=== PATIENT | female | born 1965 | race Two or more races ===

== ENCOUNTER 2016-04-17 05:28 | Inpatient (IN) | payer OTHER ==
[2016-04-17] MEDS ORDERED: LIDOCAINE 1% 5 ML SDV ONE (06:26)
[2016-04-17] MEDS ORDERED: LR 1,000 ML IV ONE (06:43)
[2016-04-17] MEDS ORDERED: LIDOCAINE 1% 5 ML SDV ID PRN (06:43)
[2016-04-17] MEDS ORDERED: POLYMYXIN B SULFATE 500,000 UNIT/10 ML SYR IRR ONE (06:56)
[2016-04-17] MEDS ORDERED: BACITRACIN 50,000 UNITS/10 ML SYR IRR ONE (06:57)
[2016-04-17] MEDS ORDERED: DIPHENOXYLATE/ATROPINE LOMOTIL 1 TAB PO PRN (07:07)
[2016-04-17] MEDS ORDERED: CYCLOBENZAPRINE 10 MG TAB PO PRN (07:07)
[2016-04-17] MEDS ORDERED: ONDANSETRON 4 MG/2 ML VIAL IVP PRN (07:07)
[2016-04-17] MEDS ORDERED: PROMETHAZINE HCL 25 MG SUPPR PR PRN (07:07)
[2016-04-17] MEDS ORDERED: diphenhydrAMINE 25 MG CAP PO PRN (07:07)
[2016-04-17] MEDS ORDERED: PROMETHAZINE HCL 25 MG/ML INJ IVP PRN (07:07)
[2016-04-17] MEDS ORDERED: PHARMACY PAIN CONSULT 1 EA MISC PRN (07:07)
[2016-04-17] MEDS ORDERED: POLYETHYLENE GLYCOL 3350 17 GM PKT PO PRN (07:07)
[2016-04-17] MEDS ORDERED: LACTULOSE 20 GM/30 ML UDCUP PO PRN (07:07)
[2016-04-17] MEDS ORDERED: MAGNESIUM HYDROXIDE 30 ML UDCUP PO PRN (07:07)
[2016-04-17] MEDS ORDERED: TEMAZEPAM 15 MG CAP PO PRN (07:07)
[2016-04-17] MEDS ORDERED: METOCLOPRAMIDE 10 MG/2 ML VIAL IVP PRN (07:07)
[2016-04-17] MEDS ORDERED: BISACODYL 10 MG SUPP PR PRN (07:07)
[2016-04-17] MEDS ORDERED: traMADol 50 MG TAB PO PRN (07:07)
[2016-04-17] MEDS ORDERED: ONDANSETRON DISINTEGRATING 4 MG TAB PO PRN (07:07)
[2016-04-17] MEDS ORDERED: THROMBIN (RECOMBINANT) 5,000 UNIT VIAL TP ONE (07:13)
[2016-04-17] MEDS ORDERED: CALCIUM CHLORIDE 1 GM/10 ML INJ ONE (07:13)
[2016-04-17] MEDS ORDERED: ceFAZolin 1 GM/5 ML SYR ONE (07:14)
[2016-04-17] MEDS ORDERED: PROPOFOL/EMULSION 500 MG/50 ML BOTTLE IV ONE ×2 (07:15→08:22)
[2016-04-17] MEDS ORDERED: MIDAZOLAM 2 MG/2 ML VIAL ONE (07:20)
[2016-04-17] MEDS ORDERED: FAMOTIDINE 20 MG TAB ONE (07:22)
[2016-04-17] MEDS ORDERED: ACETAMINOPHEN 325 MG TAB ONE (07:22)
[2016-04-17] MEDS ORDERED: FAMOTIDINE 20 MG TAB PO ONE (07:30)
[2016-04-17] MEDS ORDERED: ROPI/epiNEPH/KETOROLAC/morphINE JOINT COCKTAIL IU ONE (07:30)
[2016-04-17] MEDS ORDERED: ACETAMINOPHEN 325 MG TAB PO ONE (07:30)
[2016-04-17] MEDS ORDERED: VANCOMYCIN 1.25 GM in D5W 250 ML IV ONE (07:30)
[2016-04-17] MEDS ORDERED: LR 1,000 ML IV SCH (07:30)
[2016-04-17] MEDS ORDERED: clonIDINE 1 MG/10 ML VIAL EP ONE (08:30)
[2016-04-17] MEDS ORDERED: ROPIVACAINE HCL 150 MG/30 ML INJ ONE (08:30)
[2016-04-17] MEDS ORDERED: fentaNYL 100 MCG/2 ML INJ ONE (09:51)
--- NOTE | 2016-04-17 10:05 | DX ---
Left Knee, Two Views 9:44 a.m. Indication: Recent total knee arthroplasty. Technique: Crosstable lateral and AP views. Comparison: September 17, 2013. Findings: A three-piece total knee arthroplasty is anatomically aligned. No perihardware fracture. Sk in ricci and expected intraarticular and subcutaneous gas. Impression: Good positioning of total knee arthroplasty.
[2016-04-17] MEDS: predniSONE 5 MG TAB PO SCH (10:53)
[2016-04-17] MEDS: oxyCODONE IR 5 MG TAB PO PRN ×4 (10:53→22:27)
[2016-04-17] MEDS: DULoxetine 30 MG CAP PO SCH (10:53)
[2016-04-17] MEDS: LEFLUNOMIDE 20 MG TAB PO SCH (10:54)
[2016-04-17] MEDS: CYANO/VITAMIN B12 1000 MCG TAB PO SCH (10:54)
[2016-04-17] MEDS: FERROUS SULFATE 325 MG TAB PO SCH ×2 (10:54→20:19)
[2016-04-17] MEDS: FOLIC ACID 1 MG TAB PO SCH (10:55)
[2016-04-17] MEDS: SENNOSIDES/DOCUSATE SODIUM TAB PO SCH ×2 (10:55→20:20)
[2016-04-17] MEDS: ACETAMINOPHEN 325 MG TAB PO SCH ×2 (12:17→17:35)
[2016-04-17] MEDS ORDERED: VANCOMYCIN 1.5 GM in D5W 250 ML IV ONE (19:30)
[2016-04-17] MEDS: FAMOTIDINE 20 MG TAB PO SCH (20:20)
[2016-04-17] MEDS: ASPIRIN 325 MG TAB PO SCH (20:20)
[2016-04-17] MEDS: DIAZEPAM 5 MG TAB PO PRN (22:28)
[2016-04-18] MEDS: ACETAMINOPHEN 325 MG TAB PO SCH ×3 (01:37→12:33)
[2016-04-18] MEDS: oxyCODONE IR 5 MG TAB PO PRN ×3 (03:59→12:32)
[2016-04-18 05:34] LABS: HEMATOCRIT 36.3 % (38.0-47.0); HEMOGLOBIN 11.9 g/dL (12.6-16.3)
[2016-04-18] MEDS: DIAZEPAM 5 MG TAB PO PRN (05:50)
--- NOTE | 2016-04-18 07:48 | PDIAF ---
- Diagnosis Diagnosis: left knee djd Code Status: Full Code - Medication Management Discharge Medications: Medications to Continue on Transfer Cyanocobalamin [Vitamin B12 (*)] 2,500 mcg PO DAILY 03/09/16 [Last Taken ] DULoxetine [Cymbalta 30 MG (*)] 30 mg PO DAILY 03/09/16 [Last Taken 04/16/16 08: 00] Diclofenac Sodium [Voltaren 75 MG (*)] 75 mg PO DAILY 03/09/16 [Last Taken 04/10] Ferrous Sulfate [Ferrous Sulf 325 MG (*)] 325 mg PO BID 03/09/16 [Last Taken ] Folic Acid [Folic Acid 1 MG (*)] 1 mg PO DAILY 03/09/16 [Last Taken 04/10/15] Hydrocodone/Acetaminophen [[place] 5/325 (*)] 1 tab PO DAILY PRN 03/09/16 [Last Taken 04/16/16 17:30] Leflunomide [Arava 20 mg (*)] 20 mg PO DAILY 03/09/16 [Last Taken 04/10/15] Methotrexate Sodium [Rheumatrex] 10 mg PO WE 03/09/16 [Last Taken 04/10/15] predniSONE 5 mg PO DAILY 03/09/16 [Last Taken 04/10/15] riTUXimab [Rituxan] 10 mg IV Q182D 03/09/16 [Last Taken 02/17/16] Aspirin [Aspirin 325 mg (*)] 325 mg PO DAILY #0 tab 04/18/16 [Last Taken Unknown ] Diazepam [Valium 5 MG (*)] 5 mg PO Q6HRS PRN #30 tab 04/18/16 [Last Taken Unknown] oxyCODONE IR [Oxycodone Ir (*)] 5 - 10 mg PO Q3HRS PRN #70 tab 04/18/16 [Last Taken Unknown] Discharge Medications: Refer to the Discharge Home Medication list for PRN reason. - Orders Services needed: Physical Therapy Diet Recommendation: no restrictions on diet Diet Texture: Regular Texture Diet Activity/Weight Bearing Restrictions: wbat. rom as son. may shower without bandage. daily dressing change with pressure dressing. f/u at two weeks. seek attn for increasing pain, cp, sob, leg pain, drainage or other focal complaint. casandra hose x 2 weeks. aspirin 325 mg po daily - Follow Up Care Current Providers and Referrals: Doctor Not,On Staff, [Primary Care Provider] -
--- NOTE | 2016-04-18 07:49 | SOAPPROG ---
SOAP Progress Note Assessment/Plan: Assessment: s/p left knee djd Plan: d/c home wbat dvt precautions 04/18/16 07:48 Subjective: mild pain no cp or sob son po Objective: Vital Signs Temp Pulse Resp BP Pulse Ox 36.7 C 78 16 117/65 96 04/18/16 04:00 04/18/16 04:00 04/18/16 04:00 04/18/16 04:00 04/18/16 04:00 Laboratory Results 04/18/16 05:05 04/17/16 04/18/16 04/19/16 05:59 05:59 05:59 Intake Total 0 Output Total 2510 Balance -450 dressing intact mild drainage intact pfdf,ehl toes warm and pink neg homans bilaterally xrays stable alignemnt no fx or lucency ICD10 Worksheet Patient Problems: Problems Problem Status Diagnosed Arthritis of knee, left Acute - ICD10 Problem Qualifiers (1) Arthritis of knee, left
[2016-04-18 09:00] VITALS: BP 118/73; PULSE 71; RESP 14; TEMP 97.7; O2SAT 91
[2016-04-18] MEDS: CYANO/VITAMIN B12 1000 MCG TAB PO SCH (09:15)
[2016-04-18] MEDS: FAMOTIDINE 20 MG TAB PO SCH (09:16)
[2016-04-18] MEDS: LEFLUNOMIDE 20 MG TAB PO SCH (09:16)
[2016-04-18] MEDS: FOLIC ACID 1 MG TAB PO SCH (09:17)
[2016-04-18] MEDS: SENNOSIDES/DOCUSATE SODIUM TAB PO SCH (09:17)
[2016-04-18] MEDS: predniSONE 5 MG TAB PO SCH (09:17)
[2016-04-18] MEDS: FERROUS SULFATE 325 MG TAB PO SCH (09:17)
[2016-04-18] MEDS: DULoxetine 30 MG CAP PO SCH (09:17)
[2016-04-18] MEDS: ASPIRIN 325 MG TAB PO SCH (09:17)
== END 2016-04-18 13:14 | disposition home or self-care (01) | DRG 470 ==
LOC: F3N 05:28
PROVIDERS: ADMIT Orthopaedic Surgery; ATTEND Orthopaedic Surgery
PROC: 0SRD0JZ Replacement of Left Knee Joint with Synthetic Substitute, Open Approach (ICD-10-PCS; principal; 2016-04-17 07:15)
DX: M17.12 Unilateral primary osteoarthritis, left knee (principal); M06.9 Rheumatoid arthritis, unspecified
CPT/HCPCS: 97110-GP; 97116-GP; 97161-GP; 97165-GO; 97530-GP; C1713; G8978-GP-CJ; G8979-GP-CI; G8980-GP-CI; G8987-GO-CI; G8988-GO-CI; G8989-GO-CI; J0171; J0735; J1885; J2250; J2405; J2704; J2795; J3010; J3370

== ENCOUNTER → 2016-06-01 | Outpatient (CLI) | payer OTHER | LOC: BMCIMAGING 08:11 | PROVIDERS: ATTEND Orthopaedic Surgery | DX: M25.462 Effusion, left knee (principal); Z96.652 Presence of left artificial knee joint ==

== ENCOUNTER → 2016-07-13 | Outpatient (CLI) | payer OTHER | LOC: BMCIMAGING 08:17 | PROVIDERS: ATTEND Orthopaedic Surgery | DX: Z47.1 Aftercare following joint replacement surgery (principal); Z96.652 Presence of left artificial knee joint ==

== ENCOUNTER → 2016-10-04 | Outpatient (CLI) | payer OTHER | LOC: BMCIMAGING 08:31 | PROVIDERS: ATTEND Orthopaedic Surgery | DX: Z47.1 Aftercare following joint replacement surgery (principal); Z96.652 Presence of left artificial knee joint ==

== ENCOUNTER → 2017-01-05 | Outpatient (CLI) | payer OTHER | LOC: BMCIMAGING 10:27 | PROVIDERS: ATTEND Podiatrist Foot & Ankle Surgery | DX: M25.871 Other specified joint disorders, right ankle and foot (principal) ==

== ENCOUNTER → 2017-02-26 | Outpatient (CLI) | payer OTHER | LOC: FIMAGING 07:16 | PROVIDERS: ATTEND Podiatrist Foot & Ankle Surgery | DX: S82.61XA Displaced fracture of lateral malleolus of right fibula, initial encounter for closed fracture (principal); M19.071 Primary osteoarthritis, right ankle and foot ==

== ENCOUNTER → 2017-04-04 | Outpatient (CLI) | payer OTHER | LOC: BMCIMAGING 08:14 | PROVIDERS: ATTEND Orthopaedic Surgery | DX: Z47.1 Aftercare following joint replacement surgery (principal); Z96.652 Presence of left artificial knee joint ==

== ENCOUNTER → 2017-04-30 | Outpatient (CLI) | payer OTHER | LOC: BMCIMAGING 13:14 | PROVIDERS: ATTEND Podiatrist Foot & Ankle Surgery | DX: Z09 Encounter for follow-up examination after completed treatment for conditions other than malignant neoplasm (principal); Z98.1 Arthrodesis status ==

== ENCOUNTER → 2017-05-23 | Outpatient (CLI) | payer OTHER | LOC: BMCIMAGING 12:33 | PROVIDERS: ATTEND Podiatrist Foot & Ankle Surgery | DX: Z09 Encounter for follow-up examination after completed treatment for conditions other than malignant neoplasm (principal); Z98.1 Arthrodesis status ==

== ENCOUNTER 2017-06-22 10:01 | Day surgery (SDC) | payer OTHER ==
[2017-06-22] MEDS ORDERED: LR 1,000 ML IV ONE (10:13)
[2017-06-22] MEDS ORDERED: LIDOCAINE 1% 2 ML INJ ID PRN (10:13)
--- NOTE | 2017-06-22 11:37 | PDHPUP ---
History & Physical Update H&P update statement: This history and physical update is based on an assessment of the patient which was completed after admission or registration (within 24 hours), but prior to the surgery/procedure. H&P update: H&P reviewed & patient examined
[2017-06-22] MEDS ORDERED: BACITRACIN 50,000 UNITS/10 ML SYR IRR ONE (11:45)
[2017-06-22] MEDS ORDERED: POLYMYXIN B SULFATE 500,000 UNIT/10 ML SYR IRR ONE (11:45)
[2017-06-22] MEDS ORDERED: BUPIVACAINE 0.5% 30 ML SDV ONE (11:45)
--- NOTE | 2017-06-22 11:49 | PDANEPAE ---
ANE History of Present Illness 52 year old female for I&D of foot wound. ANE Past Medical History - Cardiovascular History Hx Hypertension: No Hx Arrhythmias: No Hx Chest Pain: No Hx Coronary Artery / Peripheral Vascular Disease: No Hx CHF / Valvular Disease: No Hx Palpitations: No - Pulmonary History Hx COPD: No Hx Asthma/Reactive Airway Disease: No Hx Recent Upper Respiratory Infection: No Hx Oxygen in Use at Home: No Hx Sleep Apnea: No Sleep Apnea Screening Result - Last Documented: Negative - Neurologic History Hx Cerebrovascular Accident: No Hx Seizures: No Hx Dementia: No - Endocrine History Hx Diabetes: No Hypothyroid: No Hyperthyroid: No Obesity: no - Renal History Hx Renal Disorders: No - Liver History Hx Hepatic Disorders: No Hepatic History Comment: JONES - Neurological & Psychiatric Hx Hx Neurological and Psychiatric Disorders: No - Cancer History Hx Cancer: No - Congenital Disorder History Hx Congenital Disorders: No - GI History Hx Gastrointestinal Disorders: No - Other Health History Other Health History: RHEUMATOID ARTHRITIS -. DECREASED IRON RELATED TO RHEUMATOID RX'S - Chronic Pain History Chronic Pain: Yes (R FOOT & JOINTS W/ARTHRITIS) - Surgical History Prior Surgeries: R FOOT SURG. L TKA 2017. JONES 02/2015 ANE Review of Systems Review of systems is: negative Review of Systems: - Exercise capacity Exercise capacity: >=4 METS METS (RN): 4 METS ANE Patient History - Allergies Allergies/Adverse Reactions: amoxicillin Allergy (Verified 04/17/16 11:05) SWOLLEN FACE - Home Medications Home medications: home medication list seen and reviewed Home Medications: RX: Cyanocobalamin [Vitamin B12 (*)] 2,500 mcg PO DAILY 03/09/16 [Last Taken 07/04] RX: DULoxetine [Cymbalta 30 MG (*)] 30 mg PO DAILY 03/09/16 [Last Taken 06/20/17 ] RX: Diclofenac Sodium [Voltaren 75 MG (*)] 75 mg PO DAILY 03/09/16 [Last Taken 06/20/17] RX: Ferrous Sulfate [Ferrous Sulf 325 MG (*)] 325 mg PO BID 03/09/16 [Last Taken 06/18/17] RX: Folic Acid [Folic Acid 1 MG (*)] 1 mg PO DAILY 03/09/16 [Last Taken 06/20/17 ] RX: Leflunomide [Arava 20 mg (*)] 20 mg PO DAILY 03/09/16 [Last Taken 06/20/17] RX: Methotrexate Sodium [Rheumatrex] 10 mg PO WE 03/09/16 [Last Taken 06/20/17] RX: predniSONE 5 mg PO DAILY 03/09/16 [Last Taken 06/20/17] RX: riTUXimab [Rituxan] 10 mg IV Q182D 03/09/16 [Last Taken 03/17/17] Bactrim SS 06/22/17 [Last Taken 06/21/17] Gabapentin 06/22/17 [Last Taken 06/21/17] - NPO status NPO Status: no food or drink >8 hours NPO Since - Liquids (Date): 06/21/17 NPO Since - Liquids (Time): 00:00 NPO Since - Solids (Date): 06/22/17 NPO Since - Solids (Time): 00:00 - Anes Hx Anes Hx: no prior problems - Smoking Hx Smoking Status: Never smoked Marijuana use: No - Alcohol Use Alcohol Use: Rarely - Family Anes Hx Family Anes Hx: neg - N/A Family Hx Anesthesia Complications: NEG ANE Labs/Vital Signs - Vital Signs Vital Signs: reviewed preoperatively; see RN documention for details Blood Pressure: 110/67 Heart Rate: 68 Respiratory Rate: 14 O2 Sat (%): 91 Height: 170.18 cm Weight: 83.915 kg ANE Physical Exam - Airway Neck exam: decreased ROM Mallampati Score: Class 2 Mouth exam: normal dental/mouth exam - Pulmonary Pulmonary: no respiratory distress - Cardiovascular Cardiovascular: regular rate and rhythym - ASA Status ASA Status: III (Rheumatoid arthritis on immunosuppression) ANE Anesthesia Plan Anesthesia Plan: GA with mask, MAC Total IV Anesthesia: Yes
[2017-06-22] MEDS ORDERED: PROPOFOL/EMULSION 500 MG/50 ML BOTTLE IV ONE ×2 (11:58→12:25)
[2017-06-22] MEDS ORDERED: fentaNYL 100 MCG/2 ML INJ ONE (11:58)
[2017-06-22] MEDS ORDERED: NALOXONE HCL 0.4 MG/ML INJ IVP PRN (12:16)
[2017-06-22] MEDS ORDERED: PHENYLEPHRINE HCL 100 MCG/ML SYR IVP PRN (12:21)
[2017-06-22] MEDS ORDERED: fentaNYL 100 MCG/2 ML INJ IVP PRN (12:21)
[2017-06-22] MEDS ORDERED: HYDROCODONE/APAP 5/325 TAB PO PRN (12:21)
[2017-06-22] MEDS ORDERED: ONDANSETRON 4 MG/2 ML VIAL IVP PRN (12:21)
[2017-06-22] MEDS ORDERED: HYDROCODONE/APAP 5/325 TAB ONE (14:00)
[2017-06-22 14:30] VITALS: BP 119/69
--- NOTE | 2017-06-22 15:46 | POSTANESTH ---
Post Anesthetic Evaluation Cardiovascular Status: Normal, Stable, Similar to Pre-Op Cond Respiratory Status: Normal, Stable, Similar to Pre-op Cond. Level of Consciousness/Mental Status: Can Participate in Eval, Alert and Oriented Pain Control: Adequate, Prn Tx Ordered Nausea/Vomiting Control: Adequate, Prn Tx Ordered Complications Possibly Related to Anesthesia: None Noted
--- NOTE | 2017-06-22 16:08 | GOP ---
[f rep st] OPERATIVE REPORT DATE OF OPERATION: 06/22/2017 SURGEON: Jose Cruz Miller DPM PAYABLE REPRESENTATIVE: None. PREOPERATIVE DIAGNOSIS: Non-healing wound, right sinus tarsi. POSTOPERATIVE DIAGNOSIS: Non-healing wound, right sinus tarsi, as well as the sinus tract to the sinus tarsi of the right foot. PROCEDURE PERFORMED: 1. Excision of wound, right foot. 2. Application of human tissue graft and vacuum-assisted closure device, right foot. FINDINGS: SPECIMENS: None. ESTIMATED BLOOD LOSS: Scant. INDICATIONS: This patient is a 52-year-old woman with a past medical history of rheumatoid arthritis, who had a subtalar joint fusion roughly 11 weeks ago. The patient's surgical wound dehisced and leaked clear, yellow fluid for the majority of that time frame. The patient did local wound care for multiple weeks without any resolution of healing. The wound has never been frankly infected. It was decided to stop local wound care and do an incision and debridement of the wound. DESCRIPTION OF PROCEDURE: Under mild sedation, the patient was brought into the operating room, placed on the operating table in the supine position. Following further IV sedation, 23 cc of 0.5% Marcaine plain was infiltrated about the patient's right sinus tarsi in a regional block. The foot was then scrubbed, prepped, and draped in the usual aseptic manner. A sterile pneumatic tourniquet was placed about the patient's well-padded supramalleolar area. The foot was exsanguinated with gravity and mild pressure, and the tourniquet was inflated to 250 mmHg. Attention was then directed to the pre-existing wound over the right sinus tarsi site, where the non-viable skin tissue surrounding the wound was excised, and a roughly 1.8 x 2.5 x 1.0 cm wound was created. The base of this wound was fibronecrotic. I could not appreciate any exposed bone. There was a very small opening, which did prove to be right over the area of the sinus tarsi site of the right hindfoot. Again, I did not see any purulence or any necrotic tissue around this area. The wound was then debrided with a VersaJet irrigation system, as well as a good portion of sharp debridement. This created a granular bleeding base to the wound. At this time, roughly 1000 mg of AmnioFill, which is amniotic tissue membrane was placed within this cavity. The wound was then dressed with a sterile wound VAC. The wound VAC was tested at 125 mmHg continuous, and the seal was appropriate and complete. The tourniquet was dropped, and a prompt hyperemic response was noted to all digits of the right foot. It should be noted that any remaining capsule and/or surrounding tissue was closed with 2 interrupted sutures of 2-0 Vicryl to close the presumed connection between the sinus tarsi and the open wound. The patient tolerated the procedure and anesthesia well. She was transferred to the recovery room with vital signs stable and vascular status intact to all digits of the right foot. The patient will be transferred home, and the VAC will be left in place for the next week's time. She will follow up in my office for any postoperative care. HEMOSTASIS: Pneumatic ankle tourniquet about the patient's right ankle, 250 mmHg for about 34 minutes. MATERIALS: Roughly 1000 mg of AmnioFill from [employer], 2-0 Vicryl. INJECTABLES: 23 cc of 0.5% Marcaine plain. COMPLICATIONS: None. ADDENDUM: The patient will be discharged home on the following written and oral postoperative instructions. 1. Keep dressing clean, dry, and intact. 2. Do not remove the VAC. 3. Do not do any range of motion exercises. 4. Use caution while taking pain medication. 5. All followup questions and concerns should be directed toward the [facility] Orthopedic Department at [phone]. /[id number]/MODL and [id number], 06/22/17, [address] [place] [address]
== END 2017-06-22 14:30 | disposition home or self-care (01) ==
LOC: FSGY 10:01
PROVIDERS: ATTEND Podiatrist Foot & Ankle Surgery
DX: T81.31XA Disruption of external operation (surgical) wound, not elsewhere classified, initial encounter (principal); E78.5 Hyperlipidemia, unspecified; M06.9 Rheumatoid arthritis, unspecified; Z98.1 Arthrodesis status; Z88.0 Allergy status to penicillin
CPT/HCPCS: C9399; J2704; J3010

== ENCOUNTER → 2017-06-27 | Outpatient (CLI) | payer OTHER | LOC: FIMAGING 15:15 | PROVIDERS: ATTEND Podiatrist Foot & Ankle Surgery | DX: Z09 Encounter for follow-up examination after completed treatment for conditions other than malignant neoplasm (principal); Z98.1 Arthrodesis status ==

== ENCOUNTER → 2017-12-27 | Outpatient (CLI) | payer OTHER | LOC: FIMAGING 10:56 | PROVIDERS: ATTEND Internal Medicine Rheumatology | DX: Z13.820 Encounter for screening for osteoporosis (principal); M81.0 Age-related osteoporosis without current pathological fracture; Z78.0 Asymptomatic menopausal state ==